=== PATIENT | male | born 1985 | race Caucasian/White ===

== ENCOUNTER 2019-04-09 14:08 | Emergency (ER) | payer MEDICAID ==
[~2019-04-09] VITALS: Ht 177.8 cm; Wt 75.0 kg
[2019-04-09] MEDS ORDERED: ASPIRIN 81MG TABLET PO ONE (15:30)
[2019-04-09] MEDS ORDERED: LORAZEPAM 1MG TABLET PO ONE (15:30)
[2019-04-09 15:50] LABS: BASOPHILS % 1.2 % (0.0-2.0); EOSINOPHILS % 5.3 % (0.0-5.0); HEMATOCRIT. 44.3 % (42.0-52.0); HEMOGLOBIN. 15.2 g/dL (14.0-18.0); LYMPHOCYTES % 41.4 % (20.0-50.0); MEAN CORPUSCULAR HEMOGLOBIN 28.7 pg (28.0-32.0); MEAN CORPUSCULAR VOLUME 83.6 fL (80.0-94.0); MEAN PLATELET VOLUME 6.6 fl (7.4-10.4); MONOCYTES % 5.9 % (2.0-8.0); NEUTROPHILS % 46.2 % (40.0-76.0); PLATELET 272 x1000/uL (130-400); RED BLOOD CELL COUNT 5.29 mill/uL (4.7-6.1); RED CELL DISTRIBUTION WIDTH 12.1 % (11.6-14.6)
[2019-04-09 15:53] LABS: CHLORIDE 100 mEq/L (98-107)
[2019-04-09 15:57] LABS: ETHANOL BLOOD 199 mg/dL
[2019-04-09] MEDS ORDERED: CHLORDIAZEPOXIDE 25MG CAPSULE PO ONE (16:30)
[2019-04-09 17:03] VITALS: BP 137/94
== END 2019-04-09 17:00 | disposition home or self-care (01) ==
LOC: ER 14:08
DX: F10.10 Alcohol abuse, uncomplicated (principal); F15.10 Other stimulant abuse, uncomplicated; F41.9 Anxiety disorder, unspecified; F32.9 Major depressive disorder, single episode, unspecified; F14.10 Cocaine abuse, uncomplicated; F12.10 Cannabis abuse, uncomplicated; Y90.6 Blood alcohol level of 120-199 mg/100 ml
CPT/HCPCS: 36415; 71045; 80320; 84484; 93005; 99284; G0480

== ENCOUNTER 2021-06-23 21:57 | Emergency (ER) | payer SELFPAY ==
[2021-06-24] MEDS ORDERED: POLY10DR LEFTEYE (14:31)
== END 2021-06-23 23:09 | disposition left against medical advice (07) ==
LOC: ER 21:57
DX: Z53.21 Procedure and treatment not carried out due to patient leaving prior to being seen by health care provider (principal)

== ENCOUNTER 2021-06-24 10:17 | Emergency (ER) | payer MEDICAID ==
[~2021-06-24] VITALS: Ht 177.8 cm; Wt 84.0 kg
[2021-06-24] MEDS ORDERED: HYDROCODONE/ACETAMINOPHEN 5/325MG TABLET PO ONE (11:00)
[2021-06-24] MEDS ORDERED: TETANUS, DIPHTHERIA, PERTUSSIS VAC/PF 0.5ML (>10YR OLD) IM ONE (11:00)
[2021-06-24] MEDS ORDERED: FLUORESCEIN SODIUM 1MG/STRIP LEFTEYE ONE (11:00)
[2021-06-24] MEDS ORDERED: TETRACAINE 0.5% OPHTH DROPS 4ML LEFTEYE ONE (11:00)
[2021-06-24] MEDS ORDERED: POLY10DR LEFTEYE (14:31)
[2021-06-24 14:50] VITALS: BP 136/66
== END 2021-06-24 14:53 | disposition home or self-care (01) ==
LOC: ER 10:17
DX: S00.12XA Contusion of left eyelid and periocular area, initial encounter (principal); S00.212A Abrasion of left eyelid and periocular area, initial encounter; X99.8XXA Assault by other sharp object, initial encounter; Y93.89 Activity, other specified; Y92.89 Other specified places as the place of occurrence of the external cause; Y99.8 Other external cause status
CPT/HCPCS: 12011; 70486; 90471; 90715; 99284

== ENCOUNTER 2022-02-28 01:02 | Emergency (ER) | payer SELFPAY ==
[~2022-02-28] VITALS: Ht 177.8 cm; Wt 80.9 kg
[~2022-02-28 01:02] MED LIST: POLY10DR LEFTEYE
[2022-02-28 04:00] VITALS: BP 132/87
[2022-02-28] MEDS ORDERED: ACETAMINOPHEN 500MG TABLET PO ONE (04:00)
== END 2022-02-28 04:39 | disposition home or self-care (01) ==
LOC: ER 01:02
DX: S06.0X9A Concussion with loss of consciousness of unspecified duration, initial encounter (principal); S40.022A Contusion of left upper arm, initial encounter; F10.129 Alcohol abuse with intoxication, unspecified; F15.10 Other stimulant abuse, uncomplicated; F14.10 Cocaine abuse, uncomplicated; F12.10 Cannabis abuse, uncomplicated; F41.9 Anxiety disorder, unspecified; F32.9 Major depressive disorder, single episode, unspecified; W01.0XXA Fall on same level from slipping, tripping and stumbling without subsequent striking against object, initial encounter; Y93.F1 Activity, caregiving, bathing; Y92.9 Unspecified place or not applicable; Y99.9 Unspecified external cause status; Y90.9 Presence of alcohol in blood, level not specified
CPT/HCPCS: 99284

== ENCOUNTER 2024-04-14 00:38 | Emergency (ER) | payer MEDICAID ==
[~2024-04-14] VITALS: Ht 177.8 cm; Wt 71.0 kg
[2024-04-14 01:56] LABS: BASOPHILS % 0.6 % (0.0-2.0); EOSINOPHILS % 2.6 % (0.0-5.0); HEMATOCRIT. 42.6 % (42.0-52.0); HEMOGLOBIN. 14.4 g/dL (14.0-18.0); LYMPHOCYTES % 32.2 % (20.0-50.0); MEAN CORPUSCULAR HEMOGLOBIN 28.2 pg (28.0-32.0); MEAN CORPUSCULAR HGB CONC 33.9 g/dL (31.0-37.0); MEAN CORPUSCULAR VOLUME 83.2 fL (80.0-94.0); MEAN PLATELET VOLUME 6.4 fl (7.4-10.4); MONOCYTES % 4.3 % (2.0-8.0); NEUTROPHILS % 60.3 % (40.0-76.0); PLATELET 233 x1000/uL (130-400); RED BLOOD CELL COUNT 5.12 mill/uL (4.7-6.1); WHITE BLOOD COUNT 6.1 x1000/uL (4.5-11.0)
[2024-04-14 02:02] VITALS: O2SAT 96
[2024-04-14 02:03] LABS: CARBON DIOXIDE 27 mEq/L (21-32); CHLORIDE 100 mEq/L (98-107); POTASSIUM 4.1 mEq/L (3.5-5.1); SODIUM 134 mEq/L (136-145)
[2024-04-14 02:04] LABS: CALCIUM 8.9 mg/dL (8.7-10.4)
[2024-04-14 02:09] LABS: CREATININE 0.7 mg/dL (0.6-1.3); GLUCOSE 123 mg/dL (70-105)
[2024-04-14 02:11] LABS: TROPONIN I HIGH SENSITIVITY 4 ng/L (3.0-53)
[2024-04-14 02:18] LABS: UREA NITROGEN BLOOD < 5 mg/dL (9-23)
[2024-04-14 06:00] VITALS: BP 117/74; PULSE 85; RESP 18; TEMP 36.83628; O2SAT 98
== END 2024-04-14 06:45 | disposition home or self-care (01) ==
LOC: ER 01:51
DX: R00.2 Palpitations (principal); F32.A Depression, unspecified; F41.9 Anxiety disorder, unspecified; F14.90 Cocaine use, unspecified, uncomplicated; F12.90 Cannabis use, unspecified, uncomplicated; F15.90 Other stimulant use, unspecified, uncomplicated
CPT/HCPCS: 36415; 71045; 80048; 84484; 85025; 93005; 99285

== ENCOUNTER 2024-04-26 04:28 | Emergency (ER) | payer MEDICAID, OTHER ==
[~2024-04-26] VITALS: Ht 177.8 cm; Wt 80.0 kg
[2024-04-26 04:51] VITALS: BP 137/94; PULSE 107; RESP 18; TEMP 98.3; O2SAT 98
[2024-04-26 05:35] LABS: BASOPHILS % 1.2 % (0.0-2.0); EOSINOPHILS % 1.2 % (0.0-5.0); HEMATOCRIT. 41.1 % (42.0-52.0); LYMPHOCYTES % 29.4 % (20.0-50.0); MEAN CORPUSCULAR HEMOGLOBIN 28.9 pg (28.0-32.0); MEAN CORPUSCULAR VOLUME 85.1 fL (80.0-94.0); MEAN PLATELET VOLUME 6.9 fl (7.4-10.4); MONOCYTES % 8.1 % (2.0-8.0); NEUTROPHILS % 60.1 % (40.0-76.0); PLATELET 118 x1000/uL (130-400); RED BLOOD CELL COUNT 4.83 mill/uL (4.7-6.1); RED CELL DISTRIBUTION WIDTH 14.5 % (11.6-14.6); WHITE BLOOD COUNT 4.5 x1000/uL (4.5-11.0)
[2024-04-26 05:38] LABS: *AMPHETAMINES SCREEN URINE PRESUMPTIVE POSITIVE (NEGATIVE); *BARBITURATES SCREEN URINE NEGATIVE (NEGATIVE); *BENZODIAZEPINES SCREEN URINE NEGATIVE (NEGATIVE); *COCAINE SCREEN URINE NEGATIVE (NEGATIVE); CANNABINOID URINE SCREEN NEGATIVE (NEGATIVE); ECSTASY MDMA SCREEN URINE NEGATIVE (NEGATIVE); METHADONE URINE SCREEN NEGATIVE (NEGATIVE); OPIATES URINE SCREEN NEGATIVE (NEGATIVE); PHENCYCLIDINE URINE SCREEN NEGATIVE (NEGATIVE)
[2024-04-26 05:40] LABS: CHLORIDE 100 mEq/L (98-107); POTASSIUM 4.5 mEq/L (3.5-5.1); SODIUM 139 mEq/L (136-145)
[2024-04-26 05:42] LABS: CALCIUM 9.4 mg/dL (8.7-10.4); CARBON DIOXIDE 27 mEq/L (21-32)
[2024-04-26 05:47] LABS: CREATININE 0.8 mg/dL (0.6-1.3); GLUCOSE 103 mg/dL (70-105); UREA NITROGEN BLOOD 6 mg/dL (9-23)
[2024-04-26 05:48] LABS: ETHANOL BLOOD 300 mg/dL (<10)
[2024-04-26 05:49] LABS: ALANINE AMINOTRANSFERASE 64 IU/L (10-49); ALBUMIN 4.9 g/dL (3.2-4.8); ASPARTATE AMINOTRANSFERASE 116 IU/L (<34); BILIRUBIN DIRECT 0.3 mg/dL (<=3.0)
[2024-04-26 05:50] LABS: BILIRUBIN TOTAL 0.9 mg/dL (0.1-1.0); PROTEIN TOTAL 7.9 g/dL (6.0-8.3)
[2024-04-26] MEDS: SODIUM CHLORIDE 0.9% 1,000 ML IV ONE (08:15)
== END 2024-04-26 11:34 | disposition home or self-care (01) ==
LOC: ER 04:50
DX: R00.2 Palpitations (principal); F10.20 Alcohol dependence, uncomplicated; F14.90 Cocaine use, unspecified, uncomplicated; F12.90 Cannabis use, unspecified, uncomplicated; F15.90 Other stimulant use, unspecified, uncomplicated
CPT/HCPCS: 80076; 80305; 80048; 80320; 83690; 85025; 36415; 93005; 99284; J7030; Z7610 ×2; G0480

== ENCOUNTER 2024-09-05 00:19 | Emergency (ER) | payer MEDICAID ==
[~2024-09-05] VITALS: Ht 177.8 cm; Wt 82.0 kg
[2024-09-05 00:45] VITALS: O2SAT 100
[2024-09-05 00:47] VITALS: BP 135/93; PULSE 100; RESP 16; TEMP 98.3; O2SAT 100
[2024-09-05 02:00] LABS: BASOPHILS % 1.4 % (0.0-2.0); EOSINOPHILS % 3.7 % (0.0-5.0); HEMATOCRIT. 42.4 % (42.0-52.0); HEMOGLOBIN. 14.3 g/dL (14.0-18.0); LYMPHOCYTES % 39.9 % (20.0-50.0); MEAN CORPUSCULAR HEMOGLOBIN 29.3 pg (28.0-32.0); MEAN CORPUSCULAR HGB CONC 33.8 g/dL (31.0-37.0); MEAN CORPUSCULAR VOLUME 86.9 fL (80.0-94.0); MEAN PLATELET VOLUME 6.9 fl (7.4-10.4); MONOCYTES % 5.5 % (2.0-8.0); NEUTROPHILS % 49.5 % (40.0-76.0); PLATELET 110 x1000/uL (130-400); RED BLOOD CELL COUNT 4.88 mill/uL (4.7-6.1); RED CELL DISTRIBUTION WIDTH 14.9 % (11.6-14.6); WHITE BLOOD COUNT 3.7 x1000/uL (4.5-11.0)
[2024-09-05 02:44] LABS: INR 0.9
[2024-09-05 03:06] LABS: CHLORIDE 101 mEq/L (98-107); POTASSIUM 4.3 mEq/L (3.5-5.1); SODIUM 140 mEq/L (136-145)
[2024-09-05 03:07] LABS: CALCIUM 8.8 mg/dL (8.7-10.4); CARBON DIOXIDE 26 mEq/L (21-32)
[2024-09-05 03:10] LABS: TROPONIN I HIGH SENSITIVITY 7 ng/L (3.0-53)
[2024-09-05 03:12] LABS: CREATININE 0.9 mg/dL (0.6-1.3); GLUCOSE 145 mg/dL (70-105); UREA NITROGEN BLOOD 8 mg/dL (9-23)
[2024-09-05 03:13] LABS: ETHANOL BLOOD 300 mg/dL (<10)
[2024-09-05 03:14] LABS: ALANINE AMINOTRANSFERASE 92 IU/L (10-49); ALBUMIN 4.7 g/dL (3.2-4.8); ASPARTATE AMINOTRANSFERASE 158 IU/L (<34); BILIRUBIN DIRECT 0.2 mg/dL (<=3.0)
[2024-09-05 03:15] LABS: BILIRUBIN TOTAL 0.8 mg/dL (0.1-1.0); PROTEIN TOTAL 7.9 g/dL (6.0-8.3)
[2024-09-05 03:16] LABS: CLARITY URINE CLEAR (CLEAR); COLOR URINE YELLOW (YELLOW); GLUCOSE URINE NEGATIVE (NEGATIVE); KETONES URINE TRACE (NEGATIVE); LEUKOCYTE ESTERASE URINE NEGATIVE (NEGATIVE); NITRITE URINE NEGATIVE (NEGATIVE); OCCULT BLOOD URINE NEGATIVE (NEGATIVE); PH URINE 5.5 (4.5-8.0); PROTEIN URINE 1+ (NEGATIVE); SPECIFIC GRAVITY URINE 1.012 (1.005-1.030); UROBILINOGEN URINE 0.2 E.U./dL (0.2-1.0)
[2024-09-05] MEDS ORDERED: NALT50TA5 MT (03:46)
[2024-09-05] MEDS ORDERED: GABA-1180 MT (03:46)
[2024-09-05 05:51] LABS: BACTERIA URINE NONE SEEN; RBC URINE NONE SEEN /hpf (0-2); SQUAMOUS EPITHELIAL CELL URINE FEW /lpf (RARE/1+); WBC URINE NONE SEEN /hpf (0-2)
== END 2024-09-05 04:24 | disposition home or self-care (01) ==
LOC: ER 00:19
DX: R07.89 Other chest pain (principal); F10.10 Alcohol abuse, uncomplicated; F14.90 Cocaine use, unspecified, uncomplicated; F15.90 Other stimulant use, unspecified, uncomplicated; F12.90 Cannabis use, unspecified, uncomplicated; Y90.8 Blood alcohol level of 240 mg/100 ml or more
CPT/HCPCS: 36415; 71045; 80048; 80076; 80320; 81003; 84484; 85025; 93005; 99285; G0480

== ENCOUNTER 2024-09-12 20:18 | Emergency (ER) | payer MEDICAID, OTHER ==
[~2024-09-12] VITALS: Ht 177.8 cm; Wt 84.0 kg
[~2024-09-12 20:18] MED LIST changes: +GABA-1180 MT; +NALT50TA5 MT
[2024-09-12 20:25] VITALS: O2SAT 98
[2024-09-12 20:29] VITALS: BP 142/90; PULSE 93; RESP 18; TEMP 98.1; O2SAT 99
[2024-09-12] MEDS: LORAZEPAM 0.5MG TABLET PO ONE (21:39)
== END 2024-09-12 21:39 | disposition home or self-care (01) ==
LOC: ER 20:18
DX: F41.9 Anxiety disorder, unspecified (principal); F10.90 Alcohol use, unspecified, uncomplicated; F12.90 Cannabis use, unspecified, uncomplicated; F14.90 Cocaine use, unspecified, uncomplicated; F15.90 Other stimulant use, unspecified, uncomplicated; Y90.9 Presence of alcohol in blood, level not specified
CPT/HCPCS: 99283